=== PATIENT | female | born 1955 | race Caucasian/White ===

== ENCOUNTER 2018-02-19 05:23 | Observation (INO) | payer OTHER ==
[2018-02-19 06:40] LABS: Absolute Lymphocytes (CBC) 2.2 K/uL (0.7-4.9); Absolute Monocytes 0.5 K/uL (0.1-1.3); Absolute Neutrophil 2.3 K/uL (1.8-8.0); Basophils % 0.9 % (0-1.3); Eosinophils % 3.6 % (0-4.4); Hematocrit 41.6 % (36.0-45.0); Lymphocytes % 41.9 % (15.3-44.8); MCH 26.8 pg (27.0-35.0); MCV 82.5 fL (80-100); MPV 8.1 fL (7.6-11.3); Monocytes % 8.9 % (3.3-12.3); RBC Red Blood Cell Count 5.04 M/uL (3.86-4.86)
[2018-02-19 06:53] LABS: Protime INR 0.93
[2018-02-19 06:56] LABS: Bicarbonate 28 mEq/L (21-31); Glucose Level 105 mg/dL (65-120); Potassium 3.9 mEq/L (3.6-5.0); Sodium Level 139 mEq/L (135-145)
[2018-02-19 06:58] LABS: ALT/SGPT 30 IU/L (10-60); AST/SGOT 25 IU/L (10-42); Albumin 3.9 g/dL (3.2-5.5); BUN Blood Urea Nitrogen 15 mg/dL (6-20); Bilirubin Total 0.4 mg/dL (0.3-1.2); Magnesium 1.9 mg/dL (1.8-2.5); Protein, Total 6.7 g/dL (6.0-8.3)
[2018-02-19 07:02] LABS: Alkaline Phosphatase 70 IU/L (42-121); Amylase Level 80 U/L (28-100); Bilirubin Direct < 0.1 mg/dL (0-0.2); Creatine Phosphokinase 57 IU/L (22-269)
[2018-02-19] MEDS ORDERED: FOLIC ACID 5 MG/ML VIAL ONE (07:28)
[2018-02-19] MEDS ORDERED: NA CHLORIDE 0.9% 1,000 ML ONE (07:29)
[2018-02-19] MEDS ORDERED: CEFTRIAXONE/SWI 1gm 1 GM/10 ML SYR ONE (08:06)
[2018-02-19] MEDS ORDERED: ACETAMINOPHEN 500 MG TAB ONE (08:06)
--- NOTE | 2018-02-19 08:10 | RAD REPORT ---
EXAM DESCRIPTION: CT - Head Brain Wo Cont - 02/19/2018 6:06 am CLINICAL HISTORY: Headache, hypertension COMPARISON: 08/28/2017 TECHNIQUE: All CT scans are performed using dose optimization technique as appropriate and may inclu de automated exposure control or mA/KV adjustment according to patient size. FINDINGS: No intracranial hemorrhage, hydrocephalus or extra-axial fluid collection.No areas of brai n edema or evidence of midline shift. The paranasal sinuses and mastoids are clear. The calvarium is intact. IMPRESSION: No acute intracranial abnormality.
--- NOTE | 2018-02-19 08:13 | RAD REPORT ---
EXAM DESCRIPTION: MRI - Brain Wo Cont - 02/19/2018 7:34 am CLINICAL HISTORY: Headache, CVA COMPARISON: CT head 02/19/2018, 12/31/2017 MR brain 12/12/2016, 08/25/2015 TECHNIQUE: Multi-sequence, multiplanar MR imaging of the brain was performed without contrast. FINDINGS: No intracranial hemorrhage, hydrocephalus or extra-axial fluid collections.Minimal T2 and FLAIR hyperintensities in the subcortical white matter of the frontotemporal region, greater on the l eft. No edema or shift of midline structures. No findings to suspect brain mass. DWI is negative for acute CVA. Midline structures are normally formed. Mastoid air cells and paranasal sinuses are clear. IMPRESSION: No acute or concerning intracranial abnormalities. Minimal nonspecific T2/FLAIR hyperintensities as described. Most likely, these are related to microva scular chronic ischemic changes although this pattern has also been described in cases of migraine he sylvia.
[2018-02-19 08:18] LABS: Lipase 28 U/L (22-51)
--- NOTE | 2018-02-19 08:41 | EDPHYS ---
Physician Documentation [facility] Name: Chilo Hollingsworth Age: 62 yrs Sex: Female : 1955 Arrival Date: 02/19/2018 Time: 05:24 Bed 8 Private MD: PATRICK Physician Luther Conklin HPI: 02/19 06:49 This 62 yrs old Female presents to ER via Ambulatory with complaints of tw4 Weakness, Numbness. 06:49 The patient presents to the emergency department with paresthesias of the right side of tw4 the face, that is mild. Onset: The symptoms/episode began/occurred today. Context: occurred at home. Associated signs and symptoms: Pertinent positives: headache, H/A - Sudden Onset neck stiffness. Severity of symptoms: At their worst the symptoms were moderate in the emergency department the symptoms have improved moderately. Patient's baseline: Neuro: alert and fully oriented, Motor: no deficits, Ambulation: walks without assistance, Speech: normal. Current symptoms: Currently, the patient is not experiencing any symptoms. The patient has not experienced similar symptoms in the past. Historical: - Allergies: 05:48 amlodipine; aa1 05:48 Lisinopril; aa1 - Home Meds: 05:48 metoprolol succinate 25 mg oral Tb24 1 tab once daily [Active]; aa1 - PMHx: 05:48 Hypertension; Kidney stones; aa1 - PSHx: 05:48 sinus sx; aa1 - Immunization history:: Flu vaccine is up to date. - Social history:: Smoking status: Patient/guardian denies using tobacco. ROS: 06:49 Constitutional: Negative for fever, chills, and weight loss, Cardiovascular: Negative tw4 for chest pain, palpitations, and edema, Respiratory: Negative for shortness of breath, cough, wheezing, and pleuritic chest pain, Abdomen/GI: Negative for abdominal pain, nausea, vomiting, diarrhea, and constipation, Back: Negative for injury and pain, Skin: Negative for injury, rash, and discoloration. 06:49 Neuro: Positive for numbness. Exam: 06:49 Constitutional: This is a well developed, well nourished patient who is awake, alert, tw4 and in no acute distress. Head/Face: Normocephalic, atraumatic. Chest/axilla: Normal chest wall appearance and motion. Nontender with no deformity. No lesions are appreciated. Cardiovascular: Regular rate and rhythm with a normal S1 and S2. No gallops, murmurs, or rubs. Normal PMI, no JVD. No pulse deficits. Respiratory: Lungs have equal breath sounds bilaterally, clear to auscultation and percussion. No rales, rhonchi or wheezes noted. No increased work of breathing, no retractions or nasal flaring. Abdomen/GI: Soft, non-tender, with normal bowel sounds. No distension or tympany. No guarding or rebound. No evidence of tenderness throughout. Vital Signs: 05:48 BP 165 / 89; Pulse 86; Resp 20; Temp 97.6; Pulse Ox 99% on R/A; Weight 76.66 kg; Height aa1 5 ft. 2 in. (157.48 cm); Pain 10/10; 12:00 BP 136 / 70; Pulse 70; Resp 16; Temp 97.6; Pulse Ox 100% on R/A; Pain 6/10; sg 05:48 Body Mass Index 30.91 (76.66 kg, 157.48 cm) aa1 NIH Stroke Scale Scores: 06:49 NIHSS Score: 0 tw4 [place] Coma Score: 12:00 Eye Response: spontaneous(4). Verbal Response: oriented(5). Motor Response: obeys sg commands(6). Total: 15. MDM: 05:48 Patient medically screened. tw4 06:56 Data reviewed: vital signs, nurses notes. Data interpreted: quality assurance monitor body: rhythm is tw4 normal sinus rhythm, Pulse oximetry: Interpretation: normal. Counseling: I had a detailed discussion with the patient and/or guardian regarding: the historical points, exam findings, and any diagnostic results supporting the discharge/admit diagnosis. Transition of care: After a detail discussion of the patient's case, care is transferred to Luther Conklin MD. ED course: will obtain MRI and consult Neurology Dr Ren. 02/19 05:48 Order name: Amylase, Serum; Complete Time: 09:22 4 02/19 05:48 Order name: Basic Metabolic Panel; Complete Time: 09:22 tw4 02/19 05:48 Order name: BNP; Complete Time: 07:10 4 02/19 05:48 Order name: CBC with Diff; Complete Time: 07:10 tw4 05/14 05:48 Order name: Ckmb; Complete Time: 09:22 02/19 05:48 Order name: CPK; Complete Time: 09:22 02/19 05:48 Order name: Hepatic Function; Complete Time: 09:22 02/19 05:48 Order name: Lipase; Complete Time: 09:22 02/19 05:48 Order name: Magnesium; Complete Time: 09:22 02/19 05:48 Order name: Protime (+inr); Complete Time: 07:10 02/19 05:48 Order name: Ptt, Activated; Complete Time: 07:10 02/19 05:48 Order name: Troponin (emerg Dept Use Only); Complete Time: 07:10 02/19 07:49 Order name: Urine Culture [facility] 02/19 08:10 Order name: Urine Dipstick--Ancillary (enter results); Complete Time: 10:36 02/19 05:48 Order name: Call for Old EKG; Complete Time: 07:03 [facility] 02/19 05:48 Order name: CT Head Brain wo Cont; Complete Time: 08:14 [facility] 02/19 05:48 Order name: EKG; Complete Time: 05:49 02/19 05:48 Order name: Cardiac monitoring; Complete Time: 06:31 02/19 05:48 Order name: EKG - Nurse/Tech; Complete Time: 06:31 02/19 07:19 Order name: Echo w/ Doppler [facility] 02/19 07:29 Order name: Brain Wo Cont; Complete Time: 08:14 [facility] 02/19 08:51 Order name: CONS Physician Consult [facility] 02/19 05:48 Order name: IV Saline Lock; Complete Time: 06:31 02/19 05:48 Order name: Labs collected and sent; Complete Time: 06:31 02/19 05:48 Order name: NPO; Complete Time: 06:31 02/19 05:48 Order name: O2 Per Protocol; Complete Time: 06:30 02/19 05:48 Order name: O2 Sat Monitoring; Complete Time: 06:30 02/19 05:48 Order name: Urine Dipstick-Ancillary (obtain specimen); Complete Time: 06:30 tw4 Administered Medications: 07:48 Drug: foLIC Acid 1 mg Route: IVPB; Site: right forearm; sg 08:00 Follow up: Response: No adverse reaction; IV Status: Completed infusion sg 07:48 Drug: NS 0.9% 500 ml Route: IV; Rate: bolus; Site: right forearm; sg 08:00 Drug: NS 0.9% 1000 ml Route: IV; Rate: 125 ml/hr; Site: right forearm; sg 10:00 Follow up: Response: No adverse reaction; IV Status: Infusion continued upon admission sg 08:00 Drug: Rocephin - (cefTRIAXone) 1 grams {Note: medication administered slow IV push as sg per pharmacy protocol.} Route: IVPB; Infused Over: 30 mins; Site: right forearm; 08:42 Follow up: Response: No adverse reaction; IV Status: Completed infusion sg 08:00 Drug: Tylenol 1000 mg Route: PO; sg 09:00 Follow up: Response: No adverse reaction sg 09:00 Follow up: Response: No adverse reaction; Pain is decreased sg 09:33 Drug: Aspirin Chewable Tablet 324 mg Route: PO; sg 10:00 Follow up: Response: No adverse reaction sg Disposition: 02/19/18 08:40 Hospitalization ordered by Stanley Patel for Observation. Preliminary diagnosis are Aphasia, Cystitis. - Bed requested for Telemetry/MedSurg (observation). - Status is Observation. sg - Condition is Stable. - Problem is new. - Symptoms have improved. UTI on Admission? Yes NIH Stroke Scale - NIH Stroke Score Date: 02/19/2018 Time: 06:49 Total Score = 0 1a. Level of Consciousness (LOC) - 0(Alert) 1b. Level of Consciousness (LOC) (Year \T\ Age) - 0(Both) 1c. LOC Commands (Open \T\ Closes Eyes/Contracts Manager) - 0(Both) 2. Best Gaze (Lateral Gaze Paresis) - 0(Normal) 3. Visual Field Loss - 0(No visual loss) 4. Facial Palsy - 0(Normal) 5a. Left Arm: Motor (10-second hold) - 0(No drift) 5b. Right Arm: Motor (10-second hold) - 0(No drift) 6a. Left Leg: Motor (5-second hold - always test supine) - 0(No drift) 6b. Right Leg: Motor (5-second hold - always test supine) - 0(No drift) 7. Limb Ataxia (finger/nose \T\ heel/miranda - test with eyes open) - 0(Absent) 8. Sensory Loss (pinprick arms/legs/face) - 0(Normal) 9. Best Language: Aphasia (description/naming/reading) - 0(No aphasia) 10. Dysarthria (speech clarity - read or repeat words) - 0(Normal) 11. Extinction and Inattention (visual/tactile/auditory/spatial/personal) - 0(No abnormality) Initials: tw4 Signatures: Dispatcher [employer] EDMS Darby Dwyer Steven RN Lou Clarke RN RN aa1 Luther Conklin MD MD cha Roszak, Josh, PA PA jr8 Leoncio Skinner RN RN Ravindra Joel MD MD tw4 Corrections: (The following items were deleted from the chart) 07:25 07:21 Carotid Artery Bilateral+US.RAD.BRZ ordered. [facility]OK EDMS 07:29 06:56 MR STROKE PROTOCOL+MRI.RAD.BRZ ordered. [facility] 11:28 08:40 Hospitalization Ordered by Stanley Patel DO for Observation. Preliminary bd diagnosis is Aphasia; Cystitis. Bed requested for Telemetry/MedSurg (observation). Status is Observation. Condition is Stable. Problem is new. Symptoms have improved. UTI on Admission? Yes. irma 12:45 11:28 02/19/2018 08:40 Hospitalization Ordered by Stanley Patel DO for sg Observation. Preliminary diagnosis is Aphasia; Cystitis. Bed requested for Telemetry/MedSurg (observation). Status is Observation. Condition is Stable. Problem is new. Symptoms have improved. UTI on Admission? Yes. bd
--- NOTE | 2018-02-19 08:41 | ER ---
Nurse's Notes [facility] Name: Chilo Hollingsworth Age: 62 yrs Sex: Female : 1955 Arrival Date: 02/19/2018 Time: 05:24 Bed 8 Private MD: Diagnosis: Aphasia;Cystitis Presentation: 02/19 05:44 Presenting complaint: Patient states: headache off and on for past 3 days and this aa1 morning she woke up with a severe headache in the back of her head that radiates to R side of her head and down the right side of her neck. States, "I think this is all related to that metoprolol they just switched me to." Pt reports she has had these same symptoms in the past and was seen by a neurologist but they could not find anything wrong. Also c/o numbness in her back in her thoracic area. Transition of care: patient was not received from another setting of care. Onset of symptoms was February 17, 2018. Initial Sepsis Screen: Does the patient meet any 2 criteria? No. Patient's initial sepsis screen is negative. Does the patient have a suspected source of infection? No. Patient's initial sepsis screen is negative. Care prior to arrival: None. 05:44 Method Of Arrival: Ambulatory aa1 05:44 Acuity: KAMRAN 3 aa1 Triage Assessment: 05:48 General: Appears in no apparent distress. comfortable, Behavior is appropriate for age, aa1 anxious. Historical: - Allergies: 05:48 amlodipine; aa1 05:48 Lisinopril; aa1 - Home Meds: 05:48 metoprolol succinate 25 mg oral Tb24 1 tab once daily [Active]; aa1 - PMHx: 05:48 Hypertension; Kidney stones; aa1 - PSHx: 05:48 sinus sx; aa1 - Immunization history:: Flu vaccine is up to date. - Social history:: Smoking status: Patient/guardian denies using tobacco. Screenin:33 Abuse screen: Denies threats or abuse. Denies injuries from another. Nutritional ao screening: No deficits noted. Tuberculosis screening: No symptoms or risk factors identified. Fall Risk None identified. Assessment: 06:20 General: Appears in no apparent distress. uncomfortable, Behavior is cooperative, ao agitated, anxious. Pain: Complains of pain in ride side of the head. Neuro: Level of Consciousness is awake, alert, obeys commands, Oriented to person, place, time, situation, Appropriate for age Moves all extremities. Speech is normal, Facial symmetry appears normal. Cardiovascular: Heart tones S1 S2 Capillary refill < 3 seconds Patient's skin is warm and dry. Respiratory: Airway is patent Respiratory effort is even, unlabored, Respiratory pattern is regular, symmetrical. GI: Abdomen is obese. : No signs and/or symptoms were reported regarding the genitourinary system. EENT: No signs and/or symptoms were reported regarding the EENT system. Derm: No signs and/or symptoms reported regarding the dermatologic system. Musculoskeletal: No signs and/or symptoms reported regarding the musculoskeletal system. 06:58 Reassessment: pt observed ambulating in the hallway back to exam room from restroom. sg 07:05 Reassessment: Patient appears in no apparent distress at this time. Patient is alert, sg oriented x 3, equal unlabored respirations, skin warm/dry/pink. 07:31 Reassessment: pt remains on the unit at this time in MRI, pt family remains at bedside. sg 08:30 Reassessment: Patient appears in no apparent distress at this time. Patient and/or sg family updated on plan of care and expected duration. Pain level reassessed. Patient is alert, oriented x 3, equal unlabored respirations, skin warm/dry/pink. pt c/o headache at this time, notified, new orders received pt medicated as ordered, see EMAR. Vital Signs: 05:48 BP 165 / 89; Pulse 86; Resp 20; Temp 97.6; Pulse Ox 99% on R/A; Weight 76.66 kg; Height aa1 5 ft. 2 in. (157.48 cm); Pain 10/10; 12:00 BP 136 / 70; Pulse 70; Resp 16; Temp 97.6; Pulse Ox 100% on R/A; Pain 6/10; sg 05:48 Body Mass Index 30.91 (76.66 kg, 157.48 cm) aa1 Tip Coma Score: 12:00 Eye Response: spontaneous(4). Verbal Response: oriented(5). Motor Response: obeys sg commands(6). Total: 15. NIH Stroke Scale Scores: 06:49 NIHSS Score: 0 tw4 ED Course: 05:24 Patient arrived in ED. am2 05:46 Triage completed. aa1 05:47 Ravindra Olivia MD is Attending Physician. tw4 05:48 Arm band placed on right wrist. Patient placed in an exam room, on a stretcher. aa1 06:06 CT Head Brain wo Cont In Process Unspecified. EDMS 06:10 Inserted saline lock: 20 gauge in right antecubital area, using aseptic technique. ao Blood collected. 06:11 CT completed. Patient tolerated procedure well. Patient moved to CT via stretcher. eh Patient moved back from CT. 06:30 Lou Smith RN is Primary Nurse. aa1 06:33 Patient has correct armband on for positive identification. air sampling and monitoring on. Pulse ao ox on. NIBP on. 07:02 Attending Physician role handed off by Ravindra Olivia MD irma 07:02 Luther Conklin MD is Attending Physician. irma 07:05 Report given to CATA Avila and Eddie RN. ao 07:11 Primary Nurse role handed off by Lou Smith RN sg 07:11 Eddie Sun, CATA is Primary Nurse. sg 07:23 Patient moved to MRI via wheelchair. lc 07:30 Brain Wo Cont In Process Unspecified. EDMS 07:53 Patient moved back from MRI. lc 08:39 Stanley Patel DO is Hospitalizing Provider. irma 12:20 No provider procedures requiring assistance completed. Patient admitted, IV remains in sg place. intact, No redness/swelling at site. Administered Medications: 07:48 Drug: foLIC Acid 1 mg Route: IVPB; Site: right forearm; sg 08:00 Follow up: Response: No adverse reaction; IV Status: Completed infusion sg 07:48 Drug: NS 0.9% 500 ml Route: IV; Rate: bolus; Site: right forearm; sg 08:00 Drug: NS 0.9% 1000 ml Route: IV; Rate: 125 ml/hr; Site: right forearm; sg 10:00 Follow up: Response: No adverse reaction; IV Status: Infusion continued upon admission sg 08:00 Drug: Rocephin - (cefTRIAXone) 1 grams {Note: medication administered slow IV push as sg per pharmacy protocol.} Route: IVPB; Infused Over: 30 mins; Site: right forearm; 08:42 Follow up: Response: No adverse reaction; IV Status: Completed infusion 08:00 Drug: Tylenol 1000 mg Route: PO; sg 09:00 Follow up: Response: No adverse reaction 09:00 Follow up: Response: No adverse reaction; Pain is decreased 09:33 Drug: Aspirin Chewable Tablet 324 mg Route: PO; 10:00 Follow up: Response: No adverse reaction Outcome: 08:40 Decision to Hospitalize by Provider. [facility] 12:20 Condition: good 12:20 Instructed on the need for admit, safety practices, Demonstrated understanding of instructions, follow-up care. 12:22 Admitted to Tele accompanied by tech, family with patient, via wheelchair, room 408, sg with chart, Report called to CATA Lin 12:45 Patient left the ED. NIH Stroke Scale - NIH Stroke Score Date: 02/19/2018 Time: 06:49 Total Score = 0 1a. Level of Consciousness (LOC) - 0(Alert) 1b. Level of Consciousness (LOC) (Year \\T\\ Age) - 0(Both) 1c. LOC Commands (Open \\T\\ Closes Eyes/Independent Living Instructor) - 0(Both) 2. Best Gaze (Lateral Gaze Paresis) - 0(Normal) 3. Visual Field Loss - 0(No visual loss) 4. Facial Palsy - 0(Normal) 5a. Left Arm: Motor (10-second hold) - 0(No drift) 5b. Right Arm: Motor (10-second hold) - 0(No drift) 6a. Left Leg: Motor (5-second hold - always test supine) - 0(No drift) 6b. Right Leg: Motor (5-second hold - always test supine) - 0(No drift) 7. Limb Ataxia (finger/nose \\T\\ heel/miranda - test with eyes open) - 0(Absent) 8. Sensory Loss (pinprick arms/legs/face) - 0(Normal) 9. Best Language: Aphasia (description/naming/reading) - 0(No aphasia) 10. Dysarthria (speech clarity - read or repeat words) - 0(Normal) 11. Extinction and Inattention (visual/tactile/auditory/spatial/personal) - 0(No abnormality) Initials: tw4 Signatures: Dispatcher [employer] EDEddie Dsouza RN RN sg Kern, Alissa, RN RN aa1 Luther Conklin MD MD cha Compean, Lorena lc Hagler, Leoncio Jeronimo, CATA RN Alea Zuluaga amRavindra Narvaez MD MD tw4 Corrections: (The following items were deleted from the chart) 05:47 05:44 Presenting complaint: Patient states: headache off and on for past 3 days aa1 and this morning she woke up with a severe headache in the back of her head that radiates to R side of her head and down the right side of her neck. States, "I think this is all related to that metoprolol they just switched me to." aa1 20:11 09:00 Response: No adverse reaction sg sg
[2018-02-19] MEDS ORDERED: ASPIRIN 81 MG CHEWABLE TABLET ONE (09:36)
[2018-02-19 09:51] LABS: Urine Blood NEGATIVE (NEG); Urine Glucose NEGATIVE (NEG); Urine Protein NEGATIVE (NEG)
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
[2018-02-19] MEDS ORDERED: NA CHLORIDE 0.9% 1,000 ML IV SCH (12:22)
[2018-02-19] MEDS ORDERED: ONDANSETRON 4 MG/2 ML VIAL IV PRN (12:22)
--- NOTE | 2018-02-19 12:37 | ECHO ---
HEIGHT: 5 ft 2 in WEIGHT: 168 lb oz DATE OF STUDY: 02/19/[address]: Luther Conklin MD 2-DIMENSIONAL: YES M.MODE: YES DOPPLER: YES COLOR FLOW: YES TDS: NO PORTABLE: NO DEFINITY: NO BUBBLE STUDY: NO DIAGNOSIS: TRANSIENT ISCHEMIC ATTACK CARDIAC HISTORY: CATHERIZATION: NO SURGERY: NO PROSTHETIC VALVE: NO PACEMAKER: NO MEASUREMENTS (cm) DIASTOLIC (NORMALS) SYSTOLIC (NORMALS) IVSd 0.9 (0.6-1.2) LA Diam 4.0 (1.9-4.0) LVEF 65% LVIDd 4.9 (3.5-5.7) LVIDs 3.2 (2.0-3.5) %FS 36% LVPWd 0.9 (0.6-1.2) Ao Diam 2.7 (2.0-3.7) 2 DIMENSIONAL ASSESSMENT: RIGHT ATRIUM: NORMAL LEFT ATRIUM: NORMAL RIGHT VENTRICLE: NORMAL LEFT VENTRICLE: NORMAL TRICUSPID VALVE: NORMAL MITRAL VALVE: NORMAL PULMONIC VALVE: NORAML AORTIC VALVE: NORMAL PERICARDIAL EFFUSION: NONE AORTIC ROOT: NORMAL LEFT VENTRICULAR WALL MOTION: DOPPLER/COLOR FLOW: TRACE OF MITRAL AND TRICUSPID REGURGITATION. NORMAL RIGHT VENTRICULAR SYSTOLIC PRESSURE. COMMENTS: NORMAL 2D ECHO. TRACE OF MITRAL AND TRICUSPID REGURGITATION. TECHNOLOGIST: REYNA RAMSEY RD
[2018-02-19 12:51] VITALS: O2SAT 100
[2018-02-19 13:16] VITALS: BMI 30.9
[2018-02-19 13:54] LABS: Thyroid Stimulating Hormone 1.36 uIU/mL (0.34-5.60)
--- NOTE | 2018-02-19 14:43 | EKG ---
Test Date: 2018-02-19 Test Time: 06:10:39 Cheese Cook: LUDWIN MEASUREMENT RESULTS: Intervals: Rate: 66 CO: 164 QRSD: 80 QT: 402 QTc: 421 [place]: P: 64 CO: 164 QRS: 51 T: 51 INTERPRETIVE STATEMENTS: Normal sinus rhythm Normal ECG Compared to ECG 12/31/2017 22:46:52 No significant changes Electronically Signed On 02-19-18 14:43:21 CDT by Bennett Cross
--- NOTE | 2018-02-19 15:13 | RAD REPORT ---
EXAM DESCRIPTION: MRI - C Spine Wo Cont - 02/19/2018 3:06 pm CLINICAL HISTORY: Radiculopathy COMPARISON: December 2017 CT TECHNIQUE: Magnetic resonance imaging of the cervical spine was obtained with coronal and sagittal r econstruction FINDINGS: Minimal disc bulges involve C2-3 and C3-4. The thecal sac is not significantly narrowed. T he neural foramina are patent. C4-5, C5-6, C6-7 and C7-T1 are unremarkable. The spinal cord is normal caliber and signal. No abnormal signal within the bones is noted. IMPRESSION: Minimal spondylosis. No significant abnormality is displayed
[2018-02-19] MEDS ORDERED: ENOXAPARIN 40 MG/0.4 ML SQ SCH (17:00)
[2018-02-19] MEDS: ACETAMINOPHEN 500 MG TAB PO PRN (18:05)
--- NOTE | 2018-02-19 20:22 | RAD REPORT ---
EXAM DESCRIPTION: ASHLEY Reed CP - 02/19/2018 7:37 pm CLINICAL HISTORY: TIA COMPARISON: None. TECHNIQUE: Real-time sonographic evaluation of both carotid systems was performed. Doppler interroga tion was performed with waveform tracing bilaterally. FINDINGS: Normal high resistance waveforms are noted in both external carotid arteries. The common c arotid arteries and internal carotid arteries show normal low resistance waveforms. Mild plaquing changes are present in the bilateral common carotid arteries. No significant plaquing i n either internal carotid artery. On visual inspection no significant luminal narrowing noted. Peak s ystolic and end diastolic velocity values and the ICA/CCA ratios are in the non-hemodynamically signi ficant range. Antegrade flow seen in both vertebral arteries. Velocity values and ratios were recorded and are retained in the patient's imaging records. IMPRESSION: Mild plaquing changes are present without significant luminal narrowing. No evidence of a hemodynamically significant stenosis.
[2018-02-19] MEDS ORDERED: ATORVASTATIN 40 MG TAB PO SCH (21:00)
--- NOTE | 2018-02-19 23:17 | CON ---
Date of Consultation: 02/19/2018 Reason For Consultation: Possible transient ischemic attack. History Of Present Illness: A 62-year-old lady with a history of hypertension. She has had neck dis comfort and arm and back paresthesias for some time. We were attempting to get MRI of cervical spine performed as an outpatient. Through those symptoms, she had a brain MRI several years ago that was unremarkable, demonstrating only minor microvascular ischemic changes. The patient was in her usual state of health until this morning. When she woke up, she was fine and then she noticed headache and difficulty speaking with the neologisms and paraphrasic errors with difficulty using the right word in the proper context. There is no vision problem. There is no dysarthria. There is no extremity n umbness or weakness that was new. EMS was summoned. She was brought to the emergency department giv en her stroke symptoms. Symptoms essentially resolved while in the emergency department. Not a tPA candidate for resolving symptoms. Brain MRI; no acute stroke. Likewise, given the longstanding extr emity paresthesias, cervical spine MRI essentially normal, echocardiogram normal, carotid Doppler fro m last month normal, she does have a thyroid nodule with workup and/or evaluation with biopsy planned for later on this month. As noted, she is back to her baseline currently. CBC is normal. PT/PTT n ormal. Liver function tests and renal function normal. Cholesterol 206, LDL 119. She is on statin now. Consultation was requested. Past Medical History: As alluded to. Medications: Routine home medications; selenium, omeprazole, metoprolol, losartan. Allergies: LISINOPRIL, AMLODIPINE. Social History: . Does not drink or smoke. Normally independent with activities of daily li ving. Family History: Noncontributory. Review of Systems: General: Good health. Eyes: Negative. Ears, Nose, Throat: Thyroid nodule under evaluation. Cardiovascular: Hypertension. Pulmonary: Negative. GI: Negative. : Negative. Musculoskeletal: Paresthesias on the right. Neurologic: As noted. Psychiatric: Negative. Endocrine: Thyroid nodule. Hematologic: Negative. Physical Examination: Vital Signs: Temperature 97.6, pulse 70, respirations 16, blood pressure 136/70 with 165/89 earlier today. General: She is awake, alert, oriented to time, person, place, situation. Heart: Sinus rhythm. Neck: No carotid bruits. Lungs: Clear. Abdomen: Soft. Bowel sounds present. HEENT: Pupils reactive. Ocular motion full. Nelson full. Facial strength and sensation normal. T ongue protrudes evenly. Soft palate, elevates symmetrically bilaterally. Extremity: Strength full. Sensation intact. No cortical extinction. Reflexes 2/4, symmetric. Toe s are downgoing. Cerebellar Exam: Demonstrates no ataxia. Pertinent Laboratory Data: As noted in history of present illness. Impression: Transient aphasia, probable transient ischemic attack. Plan: Check a B12 and sedimentation rate given the headache in onset. Carotid Doppler last month no rmal but repeat that study as well. Continue aspirin and intensive statin therapy on discharge. I t hink if she remains stable, she can probably safely be discharged back to home tomorrow with outpatie nt followup. Thank you for the consult. BISHOP Voice ID: [id number] Report ID: [id number]
[2018-02-20] MEDS: ACETAMINOPHEN 500 MG TAB PO PRN (03:37)
[2018-02-20 04:41] LABS: Absolute Lymphocytes (CBC) 2.6 K/uL (0.7-4.9); Absolute Monocytes 0.6 K/uL (0.1-1.3); Absolute Neutrophil 2.9 K/uL (1.8-8.0); Basophils % 0.7 % (0-1.3); Eosinophils % 3.6 % (0-4.4); Hematocrit 40.2 % (36.0-45.0); Lymphocytes % 40.2 % (15.3-44.8); MCH 27.3 pg (27.0-35.0); MCV 83.2 fL (80-100); MPV 8.2 fL (7.6-11.3); Monocytes % 9.7 % (3.3-12.3); RBC Red Blood Cell Count 4.84 M/uL (3.86-4.86)
[2018-02-20 05:16] LABS: Potassium 3.8 mEq/L (3.6-5.0)
[2018-02-20] MEDS ORDERED: PANTOPRAZOLE 40MG TABLET PO SCH (06:30)
[2018-02-20 07:57] VITALS: BP 133/70; TEMP 98.1
[2018-02-20] MEDS ORDERED: ASPIRIN EC 81 MG TAB PO SCH (09:00)
[2018-02-20] MEDS ORDERED: ASPIRIN 81 MG CHEWABLE TABLET PO SCH (09:00)
[2018-02-20] MEDS ORDERED: CEFTRIAXONE/SWI 1gm 1 GM/10 ML SYR IV SCH (09:00)
[2018-02-20] MEDS ORDERED: ASPIRIN EC 325 MG TABLET PO SCH (09:00)
[2018-02-20] MEDS ORDERED: MULTIVIT W/ MINERAL TAB PO SCH (09:00)
[2018-02-20] MEDS ORDERED: LOSARTAN POTASSIUM 50 MG TABLET PO SCH (12:00)
--- NOTE | 2018-02-20 15:28 | EKG ---
Test Date: 2018-02-20 Test Time: 09:26:27 Drop Shipment Clerk: GERSON MEASUREMENT RESULTS: Intervals: Rate: 72 CT: 158 QRSD: 76 QT: 394 QTc: 431 [place]: P: 57 CT: 158 QRS: 35 T: 58 INTERPRETIVE STATEMENTS: Normal sinus rhythm Normal ECG Compared to ECG 02/19/2018 06:10:39 No significant changes Electronically Signed On 02-20-18 15:26:57 CDT by Jax Montoya
--- NOTE | 2018-02-21 11:41 | DS ---
Date of Discharge: 02/20/2018 Conduit Reamer Operator: Dr. Veliz with Neurology. Admitting Diagnoses: 1.Transient ischemic attack. 2.Essential hypertension. 3.Hyperlipidemia. 4.Headache. 5.Anxiety. 6.Spondylosis. Discharge Diagnoses: 1.Transient ischemic attack, stroke ruled out. 2.Essential hypertension, stable. 3.Migraine headache, chronic. 4.Generalized anxiety disorder. 5.Spondylosis, cervical without radiculopathy. Hospital Course: The patient is a 62-year-old female, who comes into the hospital with speech diffic ulty with repetitive and incomprehensible speech. The patient also reports having some neck pain, he adaches, numbness of the face after orthopedic procedure a few years ago. The patient was admitted t o the hospital, worked up for stroke. MRI of the brain was negative for any acute changes. Cervical spine MRI also did not show any spinal stenosis, minimal spondylosis. Echocardiogram was done, whic h showed normal EF. Carotid artery ultrasound was also done, which did not show any hemodynamically significant stenosis. The patient was seen by Dr. Veliz with Neurology. Her labs did show elevated cholesterol and triglyceride level. She was started on statin and aspirin. The patient was then doi ng well. Her speech had normalized. Stroke was ruled out. The patient was cleared for discharge fr om Neurology standpoint. The patient of note did have a thyroid nodule, which is planned to be worke d up within this month with an FNA and biopsy. B12 level was normal. The patient was then cleared f or discharge by Neurology standpoint. Her sedimentation rate was also normal. Headache improved. T he patient was then discharged home in a stable condition. Activity: As tolerated. Medications: As per medication reconciliation list. Diet: Heart healthy. Followup: Follow up with primary care physician in 2-3 days. Follow up with neurologist, Dr. Veliz in 2 weeks. Return to ER for worsening condition. Physical Examination: General: Awake, alert, oriented, no acute distress. CV: S1, S2. No murmurs. Respiratory: Moving air well bilaterally. No wheezing. Abdomen: Soft, nontender, and nondistended. Positive bowel sounds. Extremities: No clubbing, cyanosis, or edema. Neurologic: Nonfocal. SA/MODL Voice ID: [id number] Report ID: [id number]
== END 2018-02-20 10:48 | disposition home or self-care (01) ==
LOC: ER 05:23 → ERHOLD 08:43 → 4TH 12:30
PROVIDERS: ADMIT Physician Assistant; ATTEND Family Medicine
DX: G45.9 Transient cerebral ischemic attack, unspecified (principal); I10 Essential (primary) hypertension; G43.909 Migraine, unspecified, not intractable, without status migrainosus; F41.9 Anxiety disorder, unspecified; E04.1 Nontoxic single thyroid nodule; E78.5 Hyperlipidemia, unspecified; M47.9 Spondylosis, unspecified; Z87.442 Personal history of urinary calculi
CPT/HCPCS: 36415; 70450; 70551; 72141; 80048; 80061; 80076; 81003; 82150; 82550; 82553; 82607; 83690; 83735; 83880; 84439; 84443; 84484; 85025; 85610; 85652; 85730; 87077; 87086; 87088; 87186; 93005; 93306; 93880; 96361; 96365; 96375; 97163; 99285; G0378; J0696; J1650; J7030